=== PATIENT | male | born 1985 | race Hispanic/Latino ===

== ENCOUNTER 2019-05-12 02:58 | Emergency (ER) | payer SELFPAY ==
[2019-05-12 02:59] VITALS: BP 123/68; PULSE 77; RESP 20; TEMP 36.6; O2SAT 99; BMI 26.4
--- NOTE | 2019-05-12 03:07 | ED_ITS ---
HPI - Medical Clearance General Chief complaint: Medical Clearance Stated complaint: Fit for group home Time Seen by Provider: 05/12/19 03:07 Source: patient and police Mode of arrival: Ambulatory History of Present Illness HPI Narrative: This is a 33-year-old male comes to the emergency department for medical clearance for group home. Patient states that he had alcohol this evening. He denies any other intoxicants he ambulated into the department under his own power. Patient states that he did have alcohol tonight. He is alert, oriented. He states that he threw up once earlier he denies any chest pain, shortness breath or pain elsewhere denies any trauma. He denies any other symptoms. Patient denies any medical issues. Denies any prior surgeries. States he does not take any medications regularly. He is aware of his circumstances the reason he has in the department today. Review of Systems Review of Systems ROS Unobtainable: All systems reviewed & are unremarkable except as noted in HPI and below Patient History Social History Smoking Status: Never smoker Smoking Status: Never smoker alcohol intake frequency: other Substance Use Type: does not use Exam Narrative Exam Narrative: GENERAL: Alert and oriented x three, well-nourished male in mild distress. Patient smells of ETOH. HEENT: Head normocephalic, atraumatic, EOMI, conjunctivae are slightly injected, pupils reactive, face symmetric, moist mucous membranes NECK: Supple, full range of motion CARDIOVASCULAR: Regular rate and rhythm without murmurs, rubs or gallops. RESPIRATORY: Breath sounds equal bilaterally, no wheezes rales or rhonchi. ABDOMEN: Soft, nontender. Normoactive bowel sounds all 4 quadrants. No guarding or rebound, rigidity, no mass : No CVA tenderness EXTREMITIES: Normal range of motion, no clubbing or edema. Neurovascularly intact NEUROLOGICAL: Cranial nerves II through XII grossly intact. Moving all extremities, 5/5 muscle strength in upper and lower extremities. Patient ambulated into the department with a steady gait. SKIN: Warm, dry, no petechiae, no rashes or lesions. Initial Vital Signs Initial Vital Signs: Vital Signs Temperature 97.8 F 05/12/19 02:59 Pulse Rate 77 05/12/19 02:59 Respiratory Rate 20 03/01/20 02:59 Blood Pressure 123/68 03/01/20 02:59 Pulse Oximetry 99 05/12/19 02:59 MDM - Medical Clearance MDM Narrative Medical decision making narrative: Patient arrives with PD who are outside the room during evaluation. He does appear intoxicated but moderately so with a stable gait, he is alert and oriented and appropriate in the department. He is cooperative. He denies other ingestions besides alcohol. And appears appropriate for discharge at this time. Return precautions were given to PD. Discharge Plan Departure Patient Disposition: Released, Other Clinical Impression: Medical clearance for incarceration Discharge Date/Time: 05/12/19 03:15 Activity Restrictions/Additional Instructions: Patient has been medically cleared for group home. Return to the ER for fevers greater than 100.4F, altered mental status or decreased mental status, new confusion, persistent vomiting, difficulty with speech, black or bloody stools, bloody vomit, new weakness or inability to use extremities, chest pain or shortness of breath, difficulty breathing or other new or concerning symptoms
== END 2019-05-12 03:15 | disposition home or self-care (01) ==
PROVIDERS: Emergency Provider Emergency Medicine
DX: Z02.89 Encounter for other administrative examinations (principal)
CPT/HCPCS: 99281